=== PATIENT | male | born 1970 | race Caucasian/White ===

== ENCOUNTER 2022-07-06 17:02 | Emergency (ER) | payer OTHER ==
[2022-07-06 17:41] VITALS: BP 146/88; PULSE 90; RESP 18; TEMP 98.1; BMI 33.1
[2022-07-06] MEDS ORDERED: KETOROLAC TROMETHAMINE 30 MG/1 ML VIAL IM ONE (18:28)
[2022-07-06] MEDS ORDERED: LIDOCAINE 5% TOPICAL PATCH TP ONE (18:28)
[2022-07-06] MEDS ORDERED: diazePAM 5 MG TABLET PO ONE (18:28)
[2022-07-06] MEDS ORDERED: predniSONE 20 MG TABLET (UD) PO ONE (18:29)
[2022-07-06] MEDS ORDERED: diazePAM 5 MG TABLET ONE (18:46)
[2022-07-06] MEDS ORDERED: LIDOCAINE 5% TOPICAL PATCH ONE (18:46)
[2022-07-06] MEDS ORDERED: predniSONE 20 MG TABLET (UD) ONE (18:46)
[2022-07-07] MEDS ORDERED: LIDOCAINE PATCH REMOVAL MC SCH (06:00)
== END 2022-07-06 18:59 | disposition home or self-care (01) ==
LOC: JER 17:02
PROC: 3E0233Z Introduction of Anti-inflammatory into Muscle, Percutaneous Approach (ICD-10-PCS; principal; 2022-07-06)
DX: M54.50 Low back pain, unspecified (principal)
CPT/HCPCS: 99284-25